=== PATIENT | female | born 1950 | race Two or more races ===

== ENCOUNTER 2024-01-26 20:57 | Inpatient (IN) | payer MEDICARE, OTHER ==
[~2024-01-26] VITALS: Ht 165.1 cm; Wt 84.4 kg
--- NOTE | 2024-01-26 21:25 | NUR ---
BIB 878 C/O DIZZINESS FOR 1 DAY, WITH HX OF VERTIGO
--- NOTE | 2024-01-26 21:41 | NUR ---
Established IV line on left AC, G20, blood specimen collected sent to lab
--- NOTE | 2024-01-26 21:54 | NUR ---
Transported to CT scan via [facility]
--- NOTE | 2024-01-26 22:00 | NUR ---
Transported from CT scan
[2024-01-26 22:15] LABS: BASOPHILS % (AUTO) 0.7 % (0.0-2.0); EOSINOPHILS # (AUTO) 0.1 K/uL (0.0-0.7); EOSINOPHILS % (AUTO) 2.3 % (0.0-6.0); HEMATOCRIT 45 % (33-45); LYMPHOCYTES # (AUTO) 2.1 K/uL (0.8-4.8); LYMPHOCYTES % (AUTO) 33.9 % (20.0-44.0); MEAN CORPUSCULAR HEMOGLOBIN 29 PG (26.0-33.0); MEAN CORPUSCULAR HGB CONC 33 g/dl (31.0-36.0); MEAN CORPUSCULAR VOLUME 86 fL (82-100); MONOCYTES # (AUTO) 0.4 K/uL (0.1-1.30); MONOCYTES % (AUTO) 5.9 % (2.0-12.0); NEUTROPHILS # (AUTO) 3.5 K/uL (1.8-8.9); NEUTROPHILS % (AUTO) 57.2 % (43.0-81.0); PLATELET COUNT (AUTO) 222 K/uL (150-450); RED BLOOD CELL COUNT(AUTO) 5.26 MIL/uL (4.0-5.2); RED CELL DISTRIBUTION WIDTH 13.8 % (11.5-15.0); WHITE BLOOD COUNT (AUTO) 6.2 K/uL (4.3-11.0)
[2024-01-26 22:22] LABS: CALCIUM, SERUM 9.1 mg/dL (8.5-10.1); CARBON DIOXIDE 30 mmol/L (21-32); CHLORIDE 102 mmol/L (98-107); CREATININE 0.9 mg/dL (0.6-1.3); GLUCOSE 188 mg/dL (74-106); POTASSIUM 3.3 mmol/L (3.5-5.1); SODIUM SERUM 140 mmol/L (136-145); UREA NITROGEN, BLOOD 25 mg/dL (7-18)
[2024-01-26 22:29] LABS: ALANINE AMINOTRANSFERASE 67 U/L (12-78); ALBUMIN 4.1 g/dL (3.4-5.0); ALKALINE PHOSPHATASE 65 U/L (46-116); ASPARTATE AMINOTRANSFERASE 29 U/L (15-37); BILIRUBIN,DIRECT 0.2 mg/dL (0.0-0.2); BILIRUBIN,TOTAL 0.9 mg/dL (0.2-1.0); INR 0.93 (0.91-1.10); PARTIAL THROMBOPLASTIN TIME 25.6 SEC (24.3-34.3); PROTHROMBIN TIME 9.9 SECS (9.2-11.1)
[2024-01-26] MEDS ORDERED: POTASSIUM CHLORIDE 10 MEQ TABLET.SA ONE (22:48)
[2024-01-26] MEDS: POTASSIUM CHLORIDE 10 MEQ TABLET.SA PO ONE (22:50)
[2024-01-27] MEDS ORDERED: MECL-159 PO (04:53)
[2024-01-27] MEDS ORDERED: DIAZEPAM 5 MG TABLET ONE (05:09)
[2024-01-27] MEDS ORDERED: MECLIZINE HCL 25 MG TABLET ONE (05:10)
[2024-01-27] MEDS: DIAZEPAM 5 MG TABLET PO ONE (05:21)
[2024-01-27] MEDS: MECLIZINE HCL 12.5 MG TABLET PO ONE (05:21)
--- NOTE | 2024-01-27 05:44 | NUR ---
Report given to Letitia KAPADIA
--- NOTE | 2024-01-27 05:54 | NUR ---
Report given to Isabel KAPADIA
[2024-01-27] MEDS ORDERED: Z GUARD REMEDY 4 OZ OINT TP PRN (06:00)
[2024-01-27] MEDS ORDERED: ONDANSETRON HCL/PF 4 MG/2 ML VIAL IVP PRN (06:00)
[2024-01-27] MEDS ORDERED: MAGNESIUM HYDROXIDE 30 ML UDC PO PRN (06:00)
[2024-01-27] MEDS ORDERED: MAG HYDROX/AL HYDROX/SIMETH 30 ML UDC PO PRN (06:00)
[2024-01-27] MEDS: IV NS 0.9% 1,000 ML IV ONE (06:00)
--- NOTE | 2024-01-27 06:08 | NUR ---
Transported to room 304-1 via [facility]
--- NOTE | 2024-01-27 06:45 | NUR ---
SQUIRT MACHINE OPERATOR NOTES RECEIVED PATIENT FROM ER [facility]IA [facility]. REPORT GIVEN BY KANG PECK. PATIENT IS A/O X4, ABLE TO MAKE NEEDS KNOWN. PATIENT ORIENTED TO ROOM/UNIT, TAUGHT HOW TO USE CALL LIGHT. STABLE ON ROOM AIR. NO SOB OR S/S OF DISTRESS NOTED AT THIS TIME. ALL BELONGINGS ACCOUNTED FOR, BELONGING LIST SIGNED. IV ACCESS ON LAC G#20, INTACT, PATENT, INFUSING WELL WITH NS @ 75 ML/HR. VS TAKEN FF: BP 177/77, TEMP 97.7, RR 20, MS 56, O2 SAT 98%. ATTACHED TO TELE MONITOR WITH CURRENT READING SB 55 BPM. SKIN ASSESSMENT DONE, INTACT. SAFETY MEASURES INITIATED: BED IN LOW, LOCKED POSITION, RAILS UPX2, HOB ELEVATED, ALARM ON. CALL LIGHT AND TABLE WITHIN REACH. ENDORSED TO AM SHIFT RN JOEPET FOR SASHA.
--- NOTE | 2024-01-27 07:32 | NUR ---
BATCH TANK CONTROLLER OPENING NOTES RECEIVED PATIENT LYING DOWN IN BED, WITH SPONTANEOUS EYE MOVEMENT, APPEARS PLEASANT, IS A/O X4, ABLE TO MAKE NEEDS KNOWN. STABLE ON ROOM AIR. NO SOB OR S/S OF DISTRESS NOTED AT THIS TIME. IV ACCESS ON LAC G#20, INTACT, PATENT, INFUSING WELL WITH NS @ 75 ML/HR. ON TELE MONITORING WITH SB AT 63 BPM. SAFETY MEASURES INITIATED: BED IN LOW, LOCKED POSITION, RAILS UPX2, HOB ELEVATED, ALARM ON. CALL LIGHT AND TABLE WITHIN REACH. WILL CONTINUE POC TODAY.
[2024-01-27 08:00] VITALS: BP_SYST 115; BP_SYST 164; BP_DIAS 71; BP_DIAS 78; TEMP 97.9; TEMP 98.2; O2SAT 98
[2024-01-27 12:00] VITALS: BP 123/83; TEMP 98; O2SAT 99
[2024-01-27] MEDS: ACETAMINOPHEN 325 MG TABLET PO PRN (12:37)
--- NOTE | 2024-01-27 12:37 | NUR ---
RN NOTES PATIENT HAS HEAD PAIN AT SCALE OF 4/10, MILD AND DULL. TYLENOL 325 MG, GIVEN. PATIENT TOLERATED WELL. WILL MONITOR CLOSELY.
[2024-01-27] MEDS: DIAZEPAM 5 MG TABLET PO SCH (15:12)
[2024-01-27 16:00] VITALS: BP_SYST 148; BP_SYST 149; BP_DIAS 82; BP_DIAS 88; TEMP 98; TEMP 98.4; O2SAT 97; O2SAT 99
--- NOTE | 2024-01-27 19:10 | NUR ---
SECRETARY OPENING NOTES;304-1 RECEIVED PATIENT FOR CONTINUITY OF CARE AWAKE ON BED IN SEMI-FOWLERS POSITION WATCHING TV., A/O X4, ABLE TO VERBALIZED NEEDS. ON ROOM AIR, BREATHES EVENLY AND UNLABORED. NO SOB/ NOR S/SX OF ACUTE DISTRESS NOTED AT THIS TIME. IV ACCESS ON LAC #20G, INTACT AND PATENT. NOTED ON TELE MONITORING . NO COMPLAINTS OF PAIN/DISCOMFORT AT THE MOMENT. MAINTAIN ALL SAFETY MEASURES IN PLACE: BED IN LOW AND LOCKED POSITION, RAILS UPX2, HOB ELEVATED, BED ALARM ON, CALL LIGHT AND TABLE TRAY WITHIN REACH. PLAN OF CARE ONGOING.
--- NOTE | 2024-01-27 19:18 | NUR ---
CLINICAL EDUCATION CONSULTANT CLOSING NOTES RECEIVED PATIENT LYING DOWN IN BED, WITH SPONTANEOUS EYE MOVEMENT, APPEARS PLEASANT, IS A/O X4, ABLE TO MAKE NEEDS KNOWN. STABLE ON ROOM AIR. NO SOB OR S/S OF DISTRESS NOTED AT THIS TIME. IV ACCESS ON LAC G#20, INTACT, PATENT, INFUSING WELL WITH NS @ 75 ML/HR. ON TELE MONITORING WITH SR AT 83 BPM. ALL DUE MEDS GIVEN, ALL NEEDS ATTENDED. FALL AND SAFETY MEASURES IN PLACE. BED ALARM ON. BED IN LOW AND LOCKED POSITION. CALL LIGHT AND SIDE TABLE WITHIN EASY REACH. SIDE RAILS UP X3. WILL ENDORSE TO BUSINESS DEVELOPMENT ANALYST RN.
[2024-01-27 20:00] VITALS: BP 161/70; TEMP 98.2; O2SAT 95
[2024-01-27 20:03] VITALS: BP 161/70; TEMP 98.2; O2SAT 98
--- NOTE | 2024-01-27 21:45 | NUR ---
RN NOTE; PATIENT REQUESTED TO WITH HOLD HER IVF TEMPORARILY FOR SHE WANTS TO SLEEP WITHOUT BEING DISTURB.
[2024-01-28] VITALS: BP 161/70; TEMP 98.2; O2SAT 95
--- NOTE | 2024-01-28 00:05 | NUR ---
RN NOTE; PATIENT REFUSED TO TAKE V/S, RISK AND BENEFITS EXPLAIN BUT DO NOT WANT TO BE DISTURB INTERLOCKING AND SIGNAL MECHANIC ALSO TRIED.
[2024-01-28 04:00] VITALS: BP 161/70; TEMP 98.2; O2SAT 95
--- NOTE | 2024-01-28 04:15 | NUR ---
RN NOTE; PATIENT REFUSED TO TAKE HER VS, WANTS TO SLEEP MORE.
--- NOTE | 2024-01-28 04:30 | NUR ---
RN NOTE; PATIENT TO TAKE VITAL SIGNS, RISK AND BENEFITS EXPLAINED BUT PERSISTENTLY DENIED TO HAVE HER VITALS TAKEN, PREFERRED TO BE SLEEPING.
[2024-01-28 06:09] LABS: BASOPHILS % (AUTO) 0.7 % (0.0-2.0); EOSINOPHILS # (AUTO) 0.2 K/uL (0.0-0.7); EOSINOPHILS % (AUTO) 3.3 % (0.0-6.0); HEMATOCRIT 43 % (33-45); HEMOGLOBIN 14.3 g/dL (11.5-14.8); LYMPHOCYTES # (AUTO) 2.5 K/uL (0.8-4.8); LYMPHOCYTES % (AUTO) 42.9 % (20.0-44.0); MEAN CORPUSCULAR HEMOGLOBIN 29 PG (26.0-33.0); MEAN CORPUSCULAR HGB CONC 34 g/dl (31.0-36.0); MEAN CORPUSCULAR VOLUME 86 fL (82-100); MONOCYTES # (AUTO) 0.5 K/uL (0.1-1.30); MONOCYTES % (AUTO) 8.5 % (2.0-12.0); NEUTROPHILS # (AUTO) 2.6 K/uL (1.8-8.9); NEUTROPHILS % (AUTO) 44.6 % (43.0-81.0); PLATELET COUNT (AUTO) 202 K/uL (150-450); RED BLOOD CELL COUNT(AUTO) 4.95 MIL/uL (4.0-5.2); RED CELL DISTRIBUTION WIDTH 13.9 % (11.5-15.0); WHITE BLOOD COUNT (AUTO) 5.9 K/uL (4.3-11.0)
--- NOTE | 2024-01-28 06:30 | NUR ---
SHOPPER'S AIDE CLOSING NOTES; 304-1 LEFT PATIENT RESTING ON BED ASLEEP BUT EASILY AWAKE BY STIMULI. A/O X4, ABLE TO MAKE NEEDS KNOWN AND RESPONSIVE ONCE AWAKE. STABLE THROUGHOUT SHIFT ON RA, TOLERATING WELL @ 95 % SPO2 BREATHES EVENLY AND UNLABORED. NO SOB/ NOR S/SX OF ACUTE DISTRESS NOTED AT THIS TIME. IV ACCESS ON LAC #20G, INTACT, PATENT, INFUSING WELL WITH NS @ 75 ML/HR(PRESENTLY ON HOLD PER PATIENT REQUEST). ON CONTINUOUS TELE MONITORING WITH CURRENT READING OF SR WITH OCCASIONAL SB AT 56-69 BPM. ALL NURSING CARE AND NEEDS ANTICIPATED AND MET, ALL DUE MEDS GIVEN ORDERED. KEPT PATIENT CLEAN, WARM AND COMFORTABLE. MAINTAIN FALL AND SAFETY MEASURES IN PLACE; BED IN LOW AND LOCKED POSITION, BED ALARM ON, SIDE RAILS UPX3, CALL LIGHT AND SIDE TABLE WITHIN EASY REACH. PLAN OF CARE ONGOING, ENDORSE TO AM SHIFT NURSE FOR SASHA.
[2024-01-28 06:45] LABS: CALCIUM, SERUM 8.6 mg/dL (8.5-10.1); CARBON DIOXIDE 22 mmol/L (21-32); CHLORIDE 108 mmol/L (98-107); CREATININE 0.9 mg/dL (0.6-1.3); GLUCOSE 102 mg/dL (74-106); MAGNESIUM 2.3 mg/dL (1.8-2.4); PHOSPHORUS 4.6 mg/dL (2.5-4.9); POTASSIUM 3.8 mmol/L (3.5-5.1); SODIUM SERUM 142 mmol/L (136-145); UREA NITROGEN, BLOOD 22 mg/dL (7-18)
[2024-01-28 07:00] VITALS: BP 150/95; TEMP 97.5; O2SAT 95
--- NOTE | 2024-01-28 07:39 | NUR ---
RESIDENCE HALL DIRECTOR OPENING NOTES PATIENT RESTING ON BED, A/O X4, ABLE TO MAKE NEEDS KNOWN AND RESPONSIVE ONCE AWAKE. STABLE THROUGHOUT SHIFT ON RA, TOLERATING WELL @ 98 % SPO2 BREATHES EVENLY AND UNLABORED. NO SOB/ NOR S/SX OF ACUTE DISTRESS NOTED AT THIS TIME. IV ACCESS ON LAC #20G, INTACT, PATENT, INFUSING WELL WITH NS @ 75 ML/HR. ON CONTINUOUS TELE MONITORING WITH CURRENT READING OF SR WITH OCCASIONAL SB AT 52 BPM. MAINTAIN FALL AND SAFETY MEASURES IN PLACE; BED IN LOW AND LOCKED POSITION, BED ALARM ON, SIDE RAILS UPX3, CALL LIGHT AND SIDE TABLE WITHIN EASY REACH. PLAN OF CARE ONGOING.
--- NOTE | 2024-01-28 08:50 | NUR ---
RN NOTES PATIENT COMPLAINED OF VERTIGO AND MILD HEADACHE. PATIENT HAS PRN MECLIZINE 25 MGS FOR VERTIGO. PATIENT REFUSED THE MEDS. RISK AND CONSEQUENCES EXPLAINED. PATIENT UNDERSTOOD AND BELIEVES ITS MAKING HER WORST. CHARGE NURSE INFORMED.
[2024-01-28] MEDS: MECLIZINE HCL 25 MG TABLET PO PRN (08:52)
[2024-01-28] MEDS: IBUPROFEN 200 MG TABLET PO PRN (10:44)
[2024-01-28] MEDS ORDERED: AMLO-212 PO (10:51)
[2024-01-28] MEDS ORDERED: DIAZEPAM 5 MG TABLET PO PRN (11:30)
[2024-01-28 11:52] VITALS: BP 155/66; TEMP 97.2; O2SAT 97
--- NOTE | 2024-01-28 15:35 | NUR ---
VOLLEYBALL ASSISTANT COACHFUNNEL SETTER NOTES PATIENT HAS D/C ORDERS. PATIENT WAS A/O X 4, MEDICALLY STABLE AND MEDICALLY CLEAR FROM MD. SW WAS ABLE TO ASSIST HER WITH HOME CARE REFERRALS. PATIENT IS TO BE DISCHARGED TO HOME/HOTEL. CAB VOUCHER WAS MADE AVAILABLE. VITALS ARE NORMAL 115/81 BP, 82 HR, 18 RR, 98% O2. IV PULLED UP ASEPTICALLY AND C/D/I SECURED. HOME MEDS AND INSTRUCTIONS WAS EXPLAINED. PATIENT RESPONDED FOR UNDERSTANDING ALL INSTRUCTIONS. ALL DUE MEDS GIVEN. ALL NEEDS ATTENDED. PATIENT LEFT HE UNIT VIA WHEEL CHAIR AT 15:35. CN IS AWARE.
[2024-01-28 16:00] VITALS: BP 146/92; TEMP 97.9; O2SAT 96
== END 2024-01-28 18:01 | disposition home health service (06) | DRG 149 ==
LOC: ER 20:57 → TELE1 01-27 05:37 → TELE 01-27 05:49
PROVIDERS: ATTEND Internal Medicine
DX: H81.10 Benign paroxysmal vertigo, unspecified ear (principal); E87.6 Hypokalemia; R73.9 Hyperglycemia, unspecified; Z87.81 Personal history of (healed) traumatic fracture; Z79.899 Other long term (current) drug therapy
CPT/HCPCS: 36415; 70450-TC; 71045-TC; 80048-TC; 80076-TC; 83735-TC; 83880; 84100-TC; 84484-TC; 85025-TC; 85730-TC; 97116-TC; 97530-TC; A4223; G0378; J7030; J8597

== ENCOUNTER 2024-08-19 20:47 | Emergency (ER) | payer MEDICARE ==
[~2024-08-19] VITALS: Ht 165.1 cm; Wt 72.6 kg
[~2024-08-19 20:47] MED LIST: AMLO-212 PO
[2024-08-19 21:32] LABS: BASOPHILS # (AUTO) 0.1 K/uL (0.0-0.2); EOSINOPHILS # (AUTO) 0.2 K/uL (0.0-0.7); EOSINOPHILS % (AUTO) 2.4 % (0.0-6.0); HEMATOCRIT 42 % (33-45); HEMOGLOBIN 14.4 g/dL (11.5-14.8); LYMPHOCYTES # (AUTO) 2.6 K/uL (0.8-4.8); LYMPHOCYTES % (AUTO) 38.4 % (20.0-44.0); MEAN CORPUSCULAR HEMOGLOBIN 29 PG (26.0-33.0); MEAN CORPUSCULAR HGB CONC 35 g/dl (31.0-36.0); MEAN CORPUSCULAR VOLUME 84 fL (82-100); MONOCYTES # (AUTO) 0.6 K/uL (0.1-1.30); MONOCYTES % (AUTO) 8.5 % (2.0-12.0); NEUTROPHILS # (AUTO) 3.4 K/uL (1.8-8.9); NEUTROPHILS % (AUTO) 49.7 % (43.0-81.0); PLATELET COUNT (AUTO) 200 K/uL (150-450); RED BLOOD CELL COUNT(AUTO) 4.94 MIL/uL (4.0-5.2); RED CELL DISTRIBUTION WIDTH 13.8 % (11.5-15.0); WHITE BLOOD COUNT (AUTO) 6.8 K/uL (4.3-11.0)
[2024-08-19 21:33] LABS: CALCIUM, SERUM 8.7 mg/dL (8.5-10.1); CARBON DIOXIDE 24 mmol/L (21-32); CHLORIDE 107 mmol/L (98-107); CREATININE 1.1 mg/dL (0.6-1.3); GLUCOSE 155 mg/dL (74-106); POTASSIUM 3.5 mmol/L (3.5-5.1); SODIUM SERUM 141 mmol/L (136-145); UREA NITROGEN, BLOOD 22 mg/dL (7-18)
[2024-08-19 21:43] LABS: NT-PRO BNP 68 pg/mL (0-125)
[2024-08-19] MEDS ORDERED: ASPIRIN 325 MG TABLET PO ONE (22:30)
[2024-08-19] MEDS ORDERED: ONDANSETRON HCL/PF 4 MG/2 ML VIAL ONE (22:50)
[2024-08-19] MEDS: ONDANSETRON HCL/PF 4 MG/2 ML VIAL IV ONE (22:56)
[2024-08-20 10:00] VITALS: BP 138/86; TEMP 98.5; O2SAT 99
== END 2024-08-20 10:12 | disposition home or self-care (01) ==
LOC: ER 21:09
DX: R07.89 Other chest pain (principal); R11.0 Nausea; I10 Essential (primary) hypertension; Z79.899 Other long term (current) drug therapy; Z60.2 Problems related to living alone
CPT/HCPCS: 99285; 96374; 71045; 93005 ×2; 85025; 80048; 36415; 84484 ×2; 83880; J2405